=== PATIENT | female | born 1950 | race Caucasian/White ===

== ENCOUNTER 2016-06-05 05:42 | Outpatient (CLI) | payer OTHER ==
[2015-03-21 22:00] VITALS: BMI 23.3
== END 2016-06-05 05:43 | disposition home or self-care (01) ==
LOC: AMBL 05:42
PROVIDERS: ATTEND Internal Medicine Geriatric Medicine
DX: R06.02 Shortness of breath (principal); R00.0 Tachycardia, unspecified; J44.9 Chronic obstructive pulmonary disease, unspecified; Z99.81 Dependence on supplemental oxygen